=== PATIENT | male | born 1995 | race African-American/Black ===

== ENCOUNTER 2016-06-03 14:26 | Emergency (ER) | payer MEDICAID, OTHER ==
[~2016-06-03] VITALS: Ht 182.9 cm; Wt 72.6 kg
[~2016-06-03 14:26] MED LIST: CLARITIN10 M2 ORAL; PROMETHAZINE-C118 M1 ORAL; TESSALON PERLE100 MG ORAL; ZITHROMAX250 MG ORAL
[2016-06-03 14:30] VITALS: BP 124/74
[2016-06-03] MEDS ORDERED: NKM (14:33)
[2016-06-03] MEDS ORDERED: AMOXICILLIN500 MG ORAL (15:08)
[2016-06-03 15:11] VITALS: BP 124/74
--- NOTE | 2016-06-04 21:43 | Emergency Room Report ---
History of Present Illness General Chief Complaint: Upper Respiratory Illness Source: Patient Present Illness HPI Patient present with complaints of cough and congestion Ongoing for the past several days Patient reports 5 days Also has a sore throat runny nose Denies any chest pressures of breath denies any back or flank pain Denies any dysuria frequency Denies any neck pain or photophobia Allergies: Coded Allergies: Pork (Verified Allergy, Unknown, 06/03/16) Patient History Past Medical History: see triage record Pertinent Family History: none Reviewed Nursing Documentation: PMH: Agreed, PSxH: Agreed Nursing Documentation-PMH Past Medical History: No History, Except For Hx Asthma: Yes Review of Systems All Other Systems: negative except mentioned in HPI Physical Exam Vital Signs Date Time Temp Pulse Resp B/P Pulse Ox O2 Delivery O2 Flow Rate FiO2 06/03/16 14:30 98.4 16 124/74 100 Room Air 06/03/16 14:30 101 Sp02 EP Interpretation: reviewed, normal General Appearance: well appearing, no apparent distress Head: normocephalic, atraumatic Eyes: bilateral eye EOMI, bilateral eye PERRL ENT: hearing grossly normal, TMs + canals normal, uvula midline, pharyngeal erythema Neck: full range of motion, supple, no meningismus, no bony tend Respiratory: lungs clear, normal breath sounds, no rhonchi, no respiratory distress, no retraction, no accessory muscle use Cardiovascular #1: normal peripheral pulses, regular rate, rhythm, no edema, no gallop, no JVD, no murmur Gastrointestinal: normal bowel sounds, non tender, soft, no mass, no organomegaly, non-distended, no guarding, no hernia, no pulsatile mass, no rebound Musculoskeletal: normal inspection Neurologic: oriented x3, responsive, dustless operator III-XII nml as tested, motor strength/ tone normal, sensory intact Psychiatric: mood/affect normal Skin: normal color, no rash, warm/dry, palpation normal Lymphatic: normal inspection, no adenopathy Medical Decision Making Diagnostic Impression: Primary Impression: pharyngitis ER Course Patient has findings in line with simple pharyngitis Placed on oral antibiotics no signs of any peritonsillar abscess Patient does not appear septic or toxic and is otherwise stable for close outpatient follow Last Vital Signs Date Time Temp Pulse Resp B/P Pulse Ox O2 Delivery O2 Flow Rate FiO2 06/03/16 15:11 98.4 18 124/74 100 Room Air 06/03/16 14:35 100 Status: unchanged Disposition: HOME, SELF-CARE Condition: Stable Scripts Amoxicillin* (AMOXIL*) 500 Mg Capsule 500 MG ORAL THREE TIMES A DAY, #21 CAP Prov: MARIAMA FRANCO D.O. 06/03/16 Referrals: SARAH CUEVAS,REFERRING (PCP) Patient Instructions: Pharyngitis, [id number] Additional Instructions: Patient is provided with the discharge instructions notified to follow up with primary doctor in the next 2-3 days otherwise return to the er with any worsening symptoms. Please note that this report is being documented using [employer] technology. This can lead to erroneous entry secondary to incorrect interpretation by the dictating instrument. MARIAMA FRANCO D.O. Jun 04, 2016 21:43
== END 2016-06-03 15:30 | disposition home or self-care (01) ==
LOC: EMR 15:28
DX: J02.9 Acute pharyngitis, unspecified (principal); Z91.018 Allergy to other foods; J45.909 Unspecified asthma, uncomplicated
CPT/HCPCS: 99283